=== PATIENT | female | born 1995 | race African-American/Black ===

== ENCOUNTER 2017-09-05 22:10 | Emergency (ER) | payer MEDICAID, OTHER ==
[~2017-09-05] VITALS: Ht 162.6 cm; Wt 83.9 kg
[~2017-09-05 22:10] MED LIST: PREN1TAB59 PO
--- NOTE | 2017-09-05 22:24 | ER.PDOC ---
General Chief Complaint: Requesting Medical Care Stated Complaint: POSS PSYCH ISSUE Time seen by MD: 22:24 Source: patient Exam Limitations: no limitations History of Present Illness Initial Comments Pt w pmhx anxiety was seen by PCP for hallucinations...given meds...now pw worsening of auditory hallucinations (going on 2-3 months total) telling her to hurt herself and her 4 children (youngest 8 months old). Pt denies any major stress except for recent move. She has aunt here but parents are in [place] and do not believe her. Pt reports feeling suicidal. She hit her head repeatedly against the wall at 2:30 this morning to make the voices stop. Now she has posterior headache. Per fiance, she had slurred speech earlier. No n/v. No syncope. Mother is bipolar. GM has schizophrenia. Timing/Duration: getting worse Intent: Suicide, No prior thoughts of Severity: moderate Associated Symptoms: Depressed, Angry, Frustrated, Hallucinating Substance Ingested: none Allergies: Coded Allergies: No Known Allergies (Unverified , 12/18/13) Home Meds Reported Medications Vits W-Ca,Fe,Fa(<1MG) ( VITAMINS) 1 Each Tablet, 1 TAB PO DAILY , #90 TAB 3 Refills 05/05/15 Past Medical History Medical History: other (anxiety) Surgical History: no surgical history, tonsillectomy LMP (females 10-50): this week Family History Significant Family History: other (see hpi) Social History Alcohol Use: none Drug Use: none Review of Systems Constitutional: denies no symptoms reported, denies see HPI, denies chills, denies diaphoresis, denies fever, denies malaise, denies weakness, denies other EENTM: denies no symptoms reported, denies see HPI, denies eye pain, denies blurred vision, denies tearing, denies double vision, denies ear pain, denies ear discharge, denies nose pain, denies nose congestion, denies throat pain, denies throat swelling, denies mouth pain, denies mouth swelling, denies other Respiratory: denies no symptoms reported, denies see HPI, denies cough, denies orthopnea, denies shortness of breath, denies stridor, denies wheezing, denies other Cardiovascular: denies no symptoms reported, denies see HPI, denies chest pain , denies edema, denies palpitations, denies syncope, denies other Gastrointestinal: denies no symptoms reported, denies see HPI, denies abdominal pain, denies constipation, denies diarrhea, denies nausea, denies vomiting, denies other Genitourinary: denies no symptoms reported, denies see HPI, denies discharge, denies dysuria, denies frequency, denies hematuria, denies pain, denies other Musculoskeletal: denies no symptoms reported, denies see HPI, denies back pain , denies gout, denies joint pain, denies joint swelling, denies muscle pain, denies muscle stiffness, denies neck pain, denies other Skin: denies no symptoms reported, denies see HPI, denies change in color, denies change in hair/nails, denies dryness, denies lesions, denies lumps, denies rash, denies other Psychiatric/Neurological: see HPI, anxiety, depressed, headache Physical Exam General Appearance: Mild distress, Anxious (crying) EENT: No nystagmus, PERRLA, EOM's intact, NML ENT inspection Neck: Full Range of Motion, Supple, Other (diffuse bl and midline ttp) Respiratory: chest non-tender, lungs clear, normal breath sounds, no respiratory distress, no accessory muscle use Cardiovascular: Normal Peripheral Pulses, Regular Rate, Rhythm, No Edema, No Gallop, No JVD, No Murmur Gastrointestinal: No Organomegaly, No Pulsatile Mass, Non Tender, Other (obese) Extremities: Non-Tender, Normal Range of Motion Neurological/Psychiatric: Alert, 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 NML as Tested, Oriented x 3, Responds to Pain, Anxious, Depressed Affect Appearance/Memory/Insight: Appropriate Appearance Behavior/Eye Contact/Speech: Cooperative, Good Eye Contact, Normal Speech Thoughts/Hallucinations: Normal Thought Pattern, Auditory Hallucinations Skin: Normal Color, Warm/Dry Results/Orders Results/Orders Laboratory Tests Test 09/05/17 00:00 09/05/17 22:23 09/05/17 22:41 Urine HCG, Qualitative NEGATIVE (NEGATIVE) Urine Opiates (GC/MS) NEGATIVE ng/mL (CUT-OFF:300) Urine Amphetamine Qualitative POSITIVE ng/mL (CUTOFF:1000) Urine Barbiturates, Qualitative NEGATIVE ng/mL (CUT-OFF:200) Ur Tricyclic Antidepressants Screen NEGATIVE Urine Phencyclidine (PCP) (TLC) NEGATIVE ng/mL (CUT-OFF:25) Urine Benzodiazepines, Qualitative NEGATIVE ng/mL (CUT-OFF:200) Urine Cocaine Qualitative NEGATIVE ng/mL (CUT-OFF:300) Ur Tetrahydrocannabinol (THC) Scrn NEGATIVE ng/mL (CUT-OFF:50) Urine Collection Type VOID Urine Color YELLOW (YELLOW) Urine Appearance CLOUDY (CLEAR) Urine Bilirubin NEGATIVE MG/DL (NEGATIVE) Urine Ketones NEGATIVE (NEGATIVE) Urine Specific [place] 1.015 (1.005-1.035) Urine pH 6.5 (5.0-6.0) Urine Protein 15 mg/dL (NEGATIVE) Urine Urobilinogen NORMAL (NEGATIVE) Urine Nitrate POSITIVE (NEGATIVE) Urine Leukocyte Esterase 500/uL 2+ (NEGATIVE) Urine Blood 250 4+ (NEGATIVE) Urine RBC NONE SEEN RBC/HPF (NONE Urine WBC 5-10 WBC/HPF (0-2) Urine Squamous Epithelial Cells MODERATE #/HPF (FEW) Urine Amorphous Sediment MODERATE (NONE SEEN) Urine Bacteria FEW (NONE SEEN) Urine Other MUCUS 1+ #/HPF Urine Glucose NORMAL (NEGATIVE) White Blood Count 7.2 10^3/uL (4.5-11.0) Red Blood Count 4.75 10^6/uL (4.00-5.20) Hemoglobin 12.3 g/dL (12.0-15.0) Hematocrit 38.3 % (36.0-46.0) Mean Corpuscular Volume 80.6 fL (78-100) Mean Corpuscular Hemoglobin 25.9 pg (26-34) Mean Corpuscular Hemoglobin Concent 32.1 g/dL (33-37) Red Cell Distribution Width 14.1 % (11.5-14.5) Platelet Count 239 10^3/uL (150-400) Mean Platelet Volume 11.1 fL (7.8-11.0) Neutrophils (%) (Auto) 60.7 % (41.0-85.0) Lymphocytes (%) (Auto) 30.7 % (24.0-44.0) Monocytes (%) (Auto) 5.7 % (5.0-12.0) Neutrophils # (Auto) 4.4 10^3/uL (1.8-7.7) Lymphocytes # (Auto) 2.2 10^3/uL (1.0-4.8) Monocytes # (Auto) 0.4 10^3/uL (0.3-0.8) Absolute Immature Granulocyte (auto 0.02 10^3 u/L (0-2) Eosinophils % 2.2 % (0.0-5.0) Basophils % 0.4 % (0.0-0.2) Basophils # 0.0 10^3/uL (0.0-0.1) Eosinophil Count 0.2 10^3/uL (0.0-0.2) Sodium Level 143 mmol/L (132-145) Potassium Level 3.5 mmol/L (3.6-5.2) Chloride Level 106.0 mmol/L (96-109) Carbon Dioxide Level 24.7 mmol/L (20.0-32) Anion Gap 15.8 Blood Urea Nitrogen 11 mg/dL (7-18) Creatinine 1.09 mg/dL (0.59-1.40) Estimated GFR () 75.3 (>/=60) BUN/Creatinine Ratio 10.0 Glucose Level 108 mg/dL (70-110) Calcium Level 9.0 mg/dL (8.4-10.5) Total Bilirubin 0.6 mg/dL (0.2-1.0) Aspartate Amino Transf (AST/SGOT) 14 U/L (0-35) Alanine Aminotransferase (ALT/SGPT) 17 U/L (12-78) Alkaline Phosphatase 72 U/L (50-136) Total Protein 8.0 g/dL (6.4-8.2) Albumin 3.9 g/dL (3.4-5.0) Globulin 4.1 Salicylates Level 3.6 mg/dL (2.8-20.0) Acetaminophen Level 0 ug/mL (10-30) Serum Alcohol < 3 mg/dL (3-50) Percent Immature Gran (Cell Imm) 0.30 % (0.00-0.50) Administered Medications Medications (Trade) Dose Ordered Sig/Katie Route PRN Reason Start Time Stop Time Status Last Admin Dose Admin Lorazepam (Ativan) 0.5 mg STAT STAT PO 09/05/17 22:47 09/05/17 22:50 DC 09/05/17 23:02 Nitrofurantoin Macrocrystals (Macrobid) 100 mg STAT STAT PO 09/05/17 22:47 09/05/17 22:50 DC 09/05/17 23:02 Acetaminophen/ Hydrocodone Bitart (Jewett 5mg) 1 ea OT STAT PO 09/05/17 23:00 09/05/17 23:01 UNV 09/05/17 23:05 Progress Progress ua: mod LE, neg hcg labs wnl CT head (r max af level)/c spine wnl pt pos for meth 23:45 pt denies meth use pt reports improved anxiety/headache sp po norco/ativan po macrobid given for uti pt reports green nasal discharge x 1 day wo f/c/s no maxillary pain no maxillary ttp on exam EKG/XRAY/CT/US EKG: NSR, rhythm (and axis wnl), no ST T wave changes Departure Time of Disposition: 23:59 Disposition: 65 XFER TO PSYCH HOSP/UNIT Impression: Primary Impression: Auditory hallucinations Additional Impressions: Suicidal ideation UTI (lower urinary tract infection) Head injury Qualified Codes: S09.90XA - Unspecified injury of head, initial encounter Neck muscle strain Qualified Codes: S16.1XXA - Strain of muscle, fascia and tendon at neck level , initial encounter Acute sinusitis Qualified Codes: J01.00 - Acute maxillary sinusitis, unspecified Amphetamine abuse Condition: Improved Referrals: PCP,UNKNOWN (PCP) PRIMARY CARE PROVIDER Comments Pt medically clear. Duration or Time Spent with Pa: 35 CHUNG CRYSTAL MD Sep 05, 2017 22:24
[2017-09-05 22:29] LABS: BILIRUBIN,URINE NEGATIVE (NEGATIVE); UROBILINOGEN,URINE NORMAL (NEGATIVE)
[2017-09-05 22:37] LABS: APPEARANCE,URINE CLOUDY (CLEAR); UA COLOR YELLOW (YELLOW)
--- NOTE | 2017-09-05 22:37 | NUR ---
HISTORY PATIENT STATES VOICES HAVE BEEN TELLING HER TO KILL HERSELF THE PAST 2 MONTH, SHE SAID SHE THEN WORRIED ABOUT HER 4 KIDS AND THE VOICES TOLD HER TO KILL HER 4 KIDS ALSO. WHEN SHE GOES TO GIVE HER 8 MONTH OLD A BATH VOICES TELL HER TO DROWN HER BABY. THE MEDS HER DOCTOR GAVE HER FOR HER BIPOLAR DISORDER MAKE HER FEEL NUMB ALL OVER AND SHE DROPS EVERYTHING. LAST NIGHT SHE WAS BANGING HER HEAD TRYING TO HURT HERSELF AND HAS ARRIVED WITH A HEADACHE WELL
--- NOTE | 2017-09-05 22:41 | NUR ---
SCRUBS PATIENT PLACED IN PAPER SCRUBS AND SHARPS REMOVED FROM ROOM
[2017-09-05 22:46] LABS: BASOPHIL % 0.4 % (0.0-0.2); EOSINOPHIL # 0.2 10^3/uL (0.0-0.2); EOSINOPHIL % 2.2 % (0.0-5.0); HEMOGLOBIN 12.3 g/dL (12.0-15.0); LYMPHOCYTES # 2.2 10^3/uL (1.0-4.8); LYMPHOCYTES % 30.7 % (24.0-44.0); MEAN CELL HGB 25.9 pg (26-34); MEAN CELL HGB CONCENTRATION 32.1 g/dL (33-37); MEAN CORP VOLUME 80.6 fL (78-100); MEAN PLATELET VOLUME 11.1 fL (7.8-11.0); MONOCYTES # 0.4 10^3/uL (0.3-0.8); MONOCYTES % 5.7 % (5.0-12.0); NEUTROPHIL # 4.4 10^3/uL (1.8-7.7); NEUTROPHILS % 60.7 % (41.0-85.0); RED CELL DISTRIBUTION WIDTH 14.1 % (11.5-14.5); WHITE BLOOD CELL 7.2 10^3/uL (4.5-11.0)
[2017-09-05] MEDS ORDERED: ATIVAN PO STA (22:47)
[2017-09-05] MEDS ORDERED: MACROBID PO STA (22:47)
[2017-09-05 22:55] LABS: HCG URINE PREGNANCY NEGATIVE (NEGATIVE)
--- NOTE | 2017-09-05 22:56 | PCM.EKG ---
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
[2017-09-05] MEDS ORDERED: NORCO 5MG PO STA (23:00)
[2017-09-05] MEDS ORDERED: MACROBID PO ONE (23:00)
[2017-09-05] MEDS ORDERED: ATIVAN ONE (23:00)
[2017-09-05 23:02] LABS: ACETAMINOPHEN 0 ug/mL (10-30)
[2017-09-05] MEDS ORDERED: NORCO 5MG PO ONE (23:04)
--- NOTE | 2017-09-05 23:10 | NUR ---
TO CT PATIENT TO CT VIA WHEELCHAIR WITH SNOW,RAD
[2017-09-05 23:13] LABS: ALANINE AMINOTRANSFERASE(ML) 17 U/L (12-78); ALKALINE PHOSPHATASE 72 U/L (50-136); ASPARTATE AMINO TRANSFERASE 14 U/L (0-35); CARBON DIOXIDE 24.7 mmol/L (20.0-32); GLUCOSE 108 mg/dL (70-110)
--- NOTE | 2017-09-05 23:18 | NUR ---
BACK FROM CT PATIENT BACK FROM CT, SIGNIFICANT OTHER AT BEDSIDE. NO NEEDS VOICED BY EITHER
[2017-09-05 23:40] VITALS: BP 125/69
--- NOTE | 2017-09-05 23:46 | DIREP ---
PROCEDURE:CT HEAD WITHOUT CONTRAST TECHNIQUE:Axial cuts were obtained through the head, without intravenous contrast material. The images were viewed at brain and bone settings. COMPARISON:None. INDICATIONS:head injury FINDINGS: VENTRICLES:Normal. CEREBRUM:Normal. CEREBELLUM:Normal. BRAINSTEM:Normal. SKULL:Normal. SINUSES:Small air-fluid level in the right maxillary antrum. OTHER:Negative. CONCLUSION:No hemorrhage, extra-axial fluid collection, or mass effect. Location and/or mechanism of injury not given. Consider maxillary fracture because of the air-fluid level in the right maxillary antrum versus sinusitis. Dictated by: Jama De Anda MD on 09/05/2017 at 11:45 PM
--- NOTE | 2017-09-05 23:49 | DIREP ---
PROCEDURE: CT SPINE CERVICAL W/0 COMPARISON:None. INDICATIONS:injury FINDINGS: ALIGNMENT:Normal. VERTEBRAE:Normal. PARASPINAL AREA:Normal. OTHER:No additional findings. CONCLUSION:Normal examination. Dictated by: Jama De Anda MD on 09/05/2017 at 11:46 PM
--- NOTE | 2017-09-05 23:59 | NUR ---
[facility] FAXED PATIENTS CHART TO [facility]
--- NOTE | 2017-09-06 00:02 | NUR ---
ANOOP AT [facility] SPOKE WITH ANOOP AT THE [facility], WILL CHECK WITH DOC AND CALL US BACK
[2017-09-06 00:40] VITALS: BP 134/88
--- NOTE | 2017-09-06 00:50 | NUR ---
[facility] SPOKE WITH JUJU AT [facility], STATES THEY WILL NOTIFY BUSINESS MANAGER
--- NOTE | 2017-09-06 00:55 | NUR ---
SUZETTE W/[facility] SUZETTE CALLED AND WILL CALL US WHEN SHE IS AT THE OFFICE TO DO ASSESSMENT
--- NOTE | 2017-09-06 01:17 | NUR ---
ROBERTH GARSIA FROM THE [facility] CALLED TO SEE WHERE WE STAND WITH THE [facility] ASSESSMENT.
--- NOTE | 2017-09-06 01:35 | NUR ---
[facility] PATIENT ON TELE MED FOR ASSESSMENT WITH SUZETTE FROM [facility]
[2017-09-06 01:40] VITALS: BP 145/84
--- NOTE | 2017-09-06 01:50 | NUR ---
ASSESSMENT COMPLETE SUZETTE COMPLETED ASSESSMENT WITH PATIENT, WILL FAX ASSESSMENT TO THE [facility]
--- NOTE | 2017-09-06 02:26 | NUR ---
[facility] CALL INTO IRINA AT THE [facility] ON AN UPDATE REGARDING PT ADMISSION. IRINA STATED HAD EVERYTHING FROM [facility] AND WAS JUST WAITING FOR THE DOCTOR.
--- NOTE | 2017-09-06 02:26 | NUR ---
PATIENT LEFT AMA BOYFRIEND STATES HE HAS TO BE AT WORK AT 0800 AND THEY ARE LEAVING. AGAIN REMINDED PATIENT OF THE SERVICES THAT WOULD BE OFFERED TO PATIENT. BOYFRIEND STATING THEY WERE LEAVING AND THEY LEFT
--- NOTE | 2017-09-06 02:26 | NUR ---
OPENER NOTIFIED F[employer]IPAMOLD MAKER PLASTER OF PATIENT LEAVING. OPENER STATES WE CAN'T KEEP PATIENT SINCE THEY AREN'T ON PAPERS. EDP NOTIFIED
--- NOTE | 2017-09-06 02:45 | NUR ---
[facility] [employer] CALLED AND STATED [facility] HAD CALLED THEM AND THEY WOULD BE DOING A WELL CHECK ON THE PATIENT THAT LEFT AND WERE WANTING TO VERIFY ADDRESS
--- NOTE | 2017-09-06 04:00 | NUR ---
PD PD CALLED TO GET PT PHONE NUMBER. STATES WILL ATTEMPT TO CONTACT PT ONE TIME BUT IF NO ANSWER THERE IS NOTHING THEY CAN DO.
--- NOTE | 2017-09-06 04:16 | NUR ---
PHONE ATTEMPT TO CONTACT PT VIA PHONE LISTED ON PAPERWORK. NO ANSWER AT THIS TIME.
--- NOTE | 2017-09-06 13:26 | NUR ---
Savannah Quinones was concerned about patient and patients children due to patient statement of the voices telling her to drawned her children when bathing them. Dr. Quinones calleed Savannah CALLE to see if they would do a well check on children and mother.
== END 2017-09-06 02:26 | disposition left against medical advice (07) ==
LOC: ER 22:10
DX: S16.1XXA Strain of muscle, fascia and tendon at neck level, initial encounter (principal); S09.90XA Unspecified injury of head, initial encounter; F20.9 Schizophrenia, unspecified; N39.0 Urinary tract infection, site not specified; R45.851 Suicidal ideations; F41.9 Anxiety disorder, unspecified; F15.10 Other stimulant abuse, uncomplicated; J01.90 Acute sinusitis, unspecified; Z79.899 Other long term (current) drug therapy
CPT/HCPCS: 36415; 70450; 72125; 80053; 80307; 81000; 81025; 85025; 87086; 93005; 99285; G0481; G0482; G0483